=== PATIENT | female | born 1995 | race Caucasian/White ===

== ENCOUNTER 2018-04-18 20:29 | Emergency (ER) | payer OTHER ==
[2018-04-18 20:46] VITALS: BP 130/74
--- NOTE | 2018-04-18 22:51 | EDPHY ---
H & P Time Seen by Provider: 04/18/18 21:23 HPI/ROS: HPI Right ankle injury. 23-year-old female by private vehicle with her . This patient was walking down some steps caring her baby leaving work. She misstepped and twisted/inverted her right ankle. She complains of isolated lateral right ankle pain. No other injury or complaint. ROS: Constitutional: No fever, no chills. No weakness. Musculoskeletal: No back pain. No neck pain. As above. Skin: No rashes. No lacerations or abrasions. Neurological: No focal weakness or altered sensation. Past medical history: No significant past medical history. Social history: Nonsmoker. Here with . No alcohol. Physical Exam: General Appearance: Alert, no distress. This patient is responding to questions appropriately and in full sentences. This patient appears well- hydrated and well-nourished. Eyes: Pupils equal and round no pallor or injection. No lid edema, erythema or injection. Right ankle exam: Significant for tenderness on palpation over the lateral malleolus. No ecchymosis. No significant swelling or edema. No discoloration. Right foot is neurovascularly intact. No pain on palpation of the proximal fibula. Neurological: Motor sensory function is grossly intact. Cranial nerves are normal. Antalgic gait favoring the right foot. Skin: Warm and dry, no rashes. Extremities are symmetrical. All joints range without pain or impingement except noted above. Psychiatric: No agitation. No depression. Database: EKG: Imaging: Right ankle x-ray series: Negative for fracture, subluxation, dislocation. Interpreted by me. Procedures: Emergency department course: Vital signs reviewed and are normal. Patient sent for right ankle x-ray series from triage. 10:40 p.m., patient re-evaluated, results of ankle x-rays discussed. Diagnosis of right ankle sprain discussed. Right foot and ankle placed in an orthopedic shoe. Crutches provided to assist with ambulation and weight-bearing. Patient feels comfortable going home with her . Orthopedic follow-up discussed. Return to emergency department precautions reviewed. All of her questions were answered. She was discharged from the emergency department in good condition with her . Differential Diagnosis: The differential diagnosis on this patient includes but is not limited to right ankle sprain. Fracture, subluxation, dislocation of the right ankle unlikely. This represents a partial list of diagnoses considered. These considerations are based on history, physical exam, past history, reassessment and diagnostic testing. Smoking Status: Never smoked Constitutional: Initial Vital Signs Temperature (C) 36.9 C 04/18/18 20:43 Heart Rate 101 H 04/18/18 20:43 Respiratory Rate 18 04/18/18 20:43 Blood Pressure 130/74 H 04/18/18 20:43 O2 Sat (%) 95 04/18/18 20:43 O2 Delivery Mode Room Air Allergies/Adverse Reactions: No Known Allergies Allergy (Unverified 04/18/18 20:42) Home Medications: Medication Instructions Recorded ACETAMINOPHEN 04/18/18 Acet/Caffeine/Buta Fioricet 1 each PO Q6 04/18/18 [Fioricet (*)] Magnesium 04/18/18 04/18/18 Medical Decision Making - Diagnostics Imaging Results: Imaging Impressions Ankle X-Ray 04/18/18 20:50 Impression: No definite right ankle fracture. Departure - Departure Disposition: Home, Routine, Self-Care Clinical Impression: Right ankle sprain Condition: Good Instructions: Ankle Sprain (ED) Additional Instructions: Read and follow provided instructions. Follow-up with your primary care physician or orthopedics in 2-3 days for re- evaluation. Ibuprofen dosin mg every 6 hours with meals for the next 3 days only. Take only as needed for pain. Return to the emergency department for worsening pain, discoloration, swelling, loss of sensation or weakness in your foot or other serious concerns. Referrals: NONE *PRIMARY CARE P,. [Primary Care Provider] - As per Instructions Gurpreet Duran MD [Medical Doctor] - As per Instructions
== END 2018-04-18 23:09 | disposition home or self-care (01) ==
DX: S93.401A Sprain of unspecified ligament of right ankle, initial encounter (principal); W10.8XXA Fall (on) (from) other stairs and steps, initial encounter; Y93.9 Activity, unspecified; Y92.9 Unspecified place or not applicable; Y99.9 Unspecified external cause status
CPT/HCPCS: L4386

== ENCOUNTER 2018-10-11 10:20 | Emergency (ER) | payer OTHER ==
--- NOTE | 2018-10-11 10:52 | EDPHY ---
General - History Smoking Status: Never smoked Time Seen by Provider: 10/11/18 10:26 Narrative: CLINICAL IMPRESSION: Migraine headache with aura, nausea and vomiting ASSESSMENT/PLAN: Very pleasant 23-year-old female with past medical history of migraines who presents to the emergency department with gradual onset migraine over the last 3 days. No description of thunderclap headache or worst headache of her life. No associated fever, neck stiffness or meningeal findings. She also is suffering with nausea and vomiting likely from gastroenteritis acquired from her young son. Abdomen is soft without focal peritoneal findings. Vital signs are stable. Patient received IV fluids. Labs reassuring with no severe electrolyte imbalance, mild hypokalemia noted. Patient declined potassium in the ED and states she has this at home or will eat more high potassium foods. test negative. Migraine improved with IV analgesics. Patient was able to tolerate p.o. And feels comfortable with discharge home. I advised PCP follow-up. Low threshold for return to ED sooner as outlined and discharge papers. DIFFERENTIAL DX: Differential diagnosis for headache includes but not limited to subarachnoid hemorrhage, migraine headache, migraine varient headache, tension headache and infectious causes such as meningitis, pharyngitis and sinusitis. ED PROCEDURES: See lab and/or imaging results below ED COURSE: 10:45 a.m.:. Patient seen and assessed by myself. Alert, oriented, no focal neurological deficits. No description of thunderclap headache or worst headache of her life. Symptoms likely exacerbated by nausea vomiting and diarrhea for the last 3 days with decreased oral input and probable dehydration. Will plan for IV, fluid bolus x2, test, basic labs, and migraine headache cocktail. On reassessment patient is feeling much better, able to tolerate p. O., labs reassuring, mild hypokalemia. Abdomen remains soft without focal peritoneal findings. test negative. CHIEF COMPLAINT: Migraine, nausea, vomiting, diarrhea HPI: Very pleasant 23-year-old female employed as a adjunct faculty for medical terminology with [employer] presents to the emergency department today with 3 days of gradual onset migraine headache associated with visual aura, photosensitivity and phono sensitivity. Patient reports she has tried all routine migraine medications including Excedrin, ibuprofen, Tylenol and Fioricet without improvement. No reported fever, chills, neck stiffness. She has had recent GI illness that she believes she got from her son. She has had nonbloody, nonbilious vomiting, diarrhea, and nausea with generalized abdominal discomfort. No travel outside the [place] She was recently started on antibiotic as she needs dental work but her symptoms began before the antibiotic. She also reports a history of factor 5 Leiden but is not currently anticoagulated. She has no complaints of leg swelling, chest pain or shortness of breath. She has IUD in place and does not believe she could be . PAST MEDICAL HISTORY: Factor 5 Leiden, factor 2, migraines See nurse/triage notes for additional history if applicable Pertinent Past Surgical History: None reported Family History: Mother and sister with factor 5 Leiden Social History: , works as a adjunct faculty for medical terminology for [employer] REVIEW OF SYSTEMS: All other systems negative Constitutional: No fever, no chills, positive for appetite change. Eyes: No discharge, vision change ENT: No sore throat, congestion, ear pain. Cardiovascular: No chest pain, no palpitations. Respiratory: No cough, no shortness of breath. Gastrointestinal: Positive for generalized abdominal pain, vomiting, diarrhea. Genitourinary: No hematuria, dysuria, flank pain, pelvic pain Musculoskeletal: No back pain, joint swelling, joint pain, myalgias. Skin: No rashes, color change. Neurological: Positive for headache, dizziness, denies weakness. PHYSICAL EXAM: General Appearance: Alert, oriented, appropriate, cooperative, NAD, well hydrated, non-toxic appearing, tachycardic, no hypoxia. HEENT: TMs are clear bilaterally no perforation or FB, no injection, no evidence of serous or mucopurulent otitis. Oropharynx clear is no erythema or exudates, no tonsillar hypertrophy or asymmetry. Dentition without abnormality. Eyes: PERRLA, no acute vision change, nystagmus, swelling, discharge, positive for photosensitivity Conjunctiva pink, no pallor or injection Neck: Supple, nontender, no lymphadenopathy, no midline pain, FROM, no meningismus. Respiratory: There are no retractions, lungs are clear to auscultation. Cardiac: Regular rate and rhythm, no murmurs or gallops. Gastrointestinal: Abdomen is soft, mild left lower quadrant tenderness, bowel sounds normal, no masses/hernia, no rigidity, guarding or focal peritoneal findings. Neurological: Alert and oriented x 3, CN 2-12 grossly intact, normal gait no ataxia, DTR's intact, normal sensation and strength Skin: Warm, dry, no rashes, no nodules on palpation. Musculoskeletal: Extremities are symmetrical, full range of motion, no tenderness, deformity, swelling, or erythema. No calf asymmetry, swelling, erythema or warmth. Psychiatric: Patient is oriented X 3, there is no agitation. MEDICAL DECISION MAKING: Patient was seen independently. Secondary supervising physician at time of evaluation was Dr. Love. Diagnosis: Non intractable migraine with aura, nausea and vomiting . New, requires workup Summary: See Assessment and Plan for summary of ED visit Clinical lab tests: ordered / reviewed. Decision to obtain medical records or history from someone other than the patient: No Review / Summarize previous medical records: None available Discussed patient with another provider: No Patient Progress: Improved, stable for discharge. (Zhang Beltre) Medical Decision Making: I did not see this patient while she was in the emergency department. However her care was discussed with the PA while the patient was in the department. I agree with treatment plan and management (Danny Love) - Objective Vital Signs: Initial Vital Signs Temperature (C) 37.0 C 10/11/18 10:23 Heart Rate 109 H 10/11/18 10:23 Respiratory Rate 18 10/11/18 10:23 Blood Pressure 125/80 H 10/11/18 10:23 O2 Sat (%) 96 10/11/18 10:23 O2 Delivery Mode Room Air Allergies/Adverse Reactions: No Known Allergies Allergy (Verified 10/11/18 10:23) Home Medications: Medication Instructions Recorded ACETAMINOPHEN 04/18/18 Acet/Caffeine/Buta Fioricet 1 each PO Q6 04/18/18 [Fioricet (*)] Magnesium 04/18/18 04/18/18 Ondansetron Odt [Zofran Odt] 4 mg PO Q4PRN PRN #7 tab 10/11/18 Laboratory Results: Laboratory Results 10/11/18 11:10 10/11/18 11:10 Medications Given: Discontinued Medications Dexamethasone (Decadron Injection) 10 mg IVP EDNOW ONE Stop: 10/11/18 10:54 Last Admin: 10/11/18 11:09 Dose: 10 mg Diphenhydramine HCl (Benadryl Injection) 25 mg IVP EDNOW ONE Stop: 10/11/18 10:54 Last Admin: 10/11/18 11:07 Dose: 25 mg Sodium Chloride (Ns) 1,000 mls @ 0 mls/hr IV ONCE ONE; Wide Open PRN Reason: Protocol Stop: 10/11/18 10:54 Last Admin: 10/11/18 11:06 Dose: 1,000 mls Ketorolac Tromethamine (Toradol) 15 mg IVP EDNOW ONE Stop: 10/11/18 10:54 Last Admin: 10/11/18 11:06 Dose: 15 mg Metoclopramide HCl (Reglan Injection) 10 mg IVP EDNOW ONE Stop: 10/11/18 10:54 Last Admin: 10/11/18 11:10 Dose: 10 mg Departure - Departure Disposition: Home, Routine, Self-Care Clinical Impression: Migraine headache with aura, Nausea vomiting and diarrhea Condition: Good Instructions: Migraine Headache (ED), Acute Nausea and Vomiting (ED) Additional Instructions: DISCHARGE INSTRUCTIONS FROM YOUR DOCTOR Thank you for visiting our emergency department today. You were treated by a physician anesthesia assistant today and your case was reviewed with our ED Attending physician. Please keep in mind that discharge from the emergency department does not mean that there is nothing wrong - it simply means that we have not identified an emergency condition that requires further evaluation or treatment in the hospital. You should always plan to follow up with primary care for re- evaluation of your condition in the next 2-3 days. If you have been referred to a specialist, please call as soon as possible (today or tomorrow) to schedule your follow up appointment at the appropriate time. LABORATORY EVALUATION SHOWED A MILDLY LOW POTASSIUM OF 3.3. WE RECOMMEND EITHER TAKING A HOME POTASSIUM FOR 1-2 DAYS OR EATING MORE BANANA OR HIGH POTASSIUM FOODS. TEST WAS NEGATIVE. REMAINDER OF LAB WORK WAS REASSURING. A PRESCRIPTION FOR ZOFRAN WAS GIVEN TO USE IF NEEDED. PLEASE STAY WELL HYDRATED WITH FLUIDS AND GRADUATE TO BLAND DIET WHEN READY. FOLLOW UP WITH PRIMARY CARE THIS WEEK. RETURN TO ED FOR WORSENING SYMPTOMS, PERSISTENT NAUSEA OR VOMITING, BLOODY STOOLS, WORSENING ABDOMINAL PAIN, DEVELOPMENT OF FEVER GREATER THAN 100.4, OR ANY OTHER CONCERNS. People present with illnesses and injuries in different ways, and it is always possible that we have missed something. You may always return for re-evaluation if symptoms worsen or if they are not improving or if you develop new/different symptoms. Again, thank you for choosing our emergency department. We hope that you feel better. Referrals: NONE *PRIMARY CARE P,. [Primary Care Provider] - As per Instructions Ena Robin DO [Doctor of Osteopathy] - 2-3 days, call for appt. Prescriptions: Ondansetron Odt [Zofran Odt] 4 mg PO Q4PRN PRN #7 tab PRN Reason: Nausea/Vomiting, Can'T Take Po
[2018-10-11] MEDS ORDERED: KETOROLAC 30 MG/1 ML SDV IVP ONE (10:53)
[2018-10-11] MEDS ORDERED: METOCLOPRAMIDE 10 MG/2 ML VIAL IVP ONE (10:53)
[2018-10-11] MEDS ORDERED: NS 1,000 ML IV ONE (10:53)
[2018-10-11] MEDS ORDERED: DEXAMETHASONE 10 MG/ML VIAL IVP ONE (10:53)
[2018-10-11 11:16] LABS: PLATELET COUNT 245 10^3/uL (150-400)
[2018-10-11 12:09] VITALS: BP 120/80
== END 2018-10-11 12:21 | disposition home or self-care (01) ==
DX: G43.109 Migraine with aura, not intractable, without status migrainosus (principal); R11.2 Nausea with vomiting, unspecified; R19.7 Diarrhea, unspecified; E86.9 Volume depletion, unspecified; Z83.2 Family history of diseases of the blood and blood-forming organs and certain disorders involving the immune mechanism
CPT/HCPCS: 96374; J1100; J1200; J1885; J2765